=== PATIENT | female | born 1970 | race Caucasian/White ===

== ENCOUNTER 2017-12-01 18:29 | Emergency (ER) | payer BC ==
[~2017-12-01] VITALS: Ht 160 cm; Wt 74.8 kg
[~2017-12-01 18:29] MED LIST: FLEXERIL PO; MEDROLDOSEPACK PO; NORCO 5-325 TA1 EACH PO; TOPAMAX50 MG PO
[2017-12-01] MEDS ORDERED: TOPAMAX 25 MG T25 M1 PO (18:40)
[2017-12-01 19:29] LABS: URINE BILIRUBIN NEGATIVE (Negative); URINE BLOOD 3+ (Negative); URINE CLARITY SL CLOUDY; URINE COLOR RED; URINE GLUCOSE-RANDOM NEGATIVE (Negative); URINE KETONES NEGATIVE (Negative); URINE LEUKOCYTES-REFLEX 1+ (Negative); URINE NITRITE-REFLEX NEGATIVE (Negative); URINE PROTEIN 1+ (Negative); URINE SPECIFIC GRAVITY <= 1.005 (1.005-1.030); URINE UROBILINOGEN 0.2 E.U./dl (0.2-1.0)
[2017-12-01] MEDS ORDERED: BACTRIM DS TAB1 EACH PO (19:41)
[2017-12-01 19:44] LABS: SQUAMOUS 0-3 Few /LPF (0-3); WBC CLUMPS Few (None Seen)
[2017-12-01 19:45] LABS: BACTERIA-REFLEX 1-9 Few /HPF (None Seen); CASTS None Seen /LPF (None Seen); CRYSTALS None Seen /LPF (None Seen); MUCUS 0-3 Light strn/LPF (None Seen); URINE RBC >20 Many /HPF (0-2); URINE WBC-REFLEX 6-15 Few /HPF (0-5)
[2017-12-01 20:06] VITALS: BP 105/66
== END 2017-12-01 20:08 | disposition home or self-care (01) ==
LOC: M.ERS 18:29
PROVIDERS: Nurse Practitioner Psychiatric/Mental Health
DX: N93.8 Other specified abnormal uterine and vaginal bleeding (principal); R82.90 Unspecified abnormal findings in urine; G43.909 Migraine, unspecified, not intractable, without status migrainosus; Z90.49 Acquired absence of other specified parts of digestive tract; Z90.710 Acquired absence of both cervix and uterus; Z90.89 Acquired absence of other organs

== ENCOUNTER 2020-11-16 16:16 | Emergency (ER) | payer BC ==
[~2020-11-16] VITALS: Ht 160 cm; Wt 77.1 kg
[~2020-11-16 16:16] MED LIST changes: +BACTRIM DS TAB1 EACH PO; +TOPAMAX 25 MG T25 M1 PO
[2020-11-16] MEDS ORDERED: PROZAC20 M1 PO (16:27)
[2020-11-16 16:53] LABS: MPV 8.4 fl. (7.2-11.1); PLATELET COUNT* 279 thou/uL (150-400)
[2020-11-16 16:55] LABS: ABSOLUTE BASOPHILS 0.1 thou/uL (0.0-0.2); ABSOLUTE EOSINOPHILS 0.2 thou/uL (0.0-0.7); ABSOLUTE LYMPHOCYTES 1.9 thou/uL (0.8-5.3); ABSOLUTE MONOCYTES 0.7 thou/uL (0.0-1.2); ABSOLUTE NEUTROPHILS 3.5 thou/uL (1.6-8.1); BASOPHILS 1.3 %; EOSINOPHILS 3.3 %; HEMATOCRIT 41.5 % (37.0-47.0); HEMOGLOBIN 13.7 gm/dL (12.0-15.0); MCV 88.1 fL (80.0-100.0); MONOCYTES 10.6 %; NUCLEATED RBCS 0 /100WBC; POLYS 54.8 %; RBC 4.71 mil/uL (4.20-5.00); RDW-CV 13.9 % (10.5-14.5); WBC 6.5 thou/uL (4.0-11.0)
[2020-11-16 17:09] LABS: POTASSIUM 4.2 mmol/L (3.5-5.1)
[2020-11-16 17:18] LABS: URINE BILIRUBIN NEGATIVE (Negative); URINE BLOOD NEGATIVE (Negative); URINE CLARITY CLEAR; URINE COLOR YELLOW; URINE GLUCOSE-RANDOM NEGATIVE (Negative); URINE KETONES NEGATIVE (Negative); URINE LEUKOCYTES-REFLEX NEGATIVE (Negative); URINE NITRITE-REFLEX NEGATIVE (Negative); URINE PROTEIN NEGATIVE (Negative); URINE UROBILINOGEN 0.2 E.U./dl (0.2-1.0)
[2020-11-16 17:21] LABS: TOTAL BILIRUBIN 0.4 mg/dL (<0.1-1.0); TOTAL PROTEIN 7.4 g/dL (6.4-8.2)
[2020-11-16] MEDS ORDERED: MELOXICAM15 MG PO (17:46)
[2020-11-16] MEDS ORDERED: FLEXERIL PO (17:46)
[2020-11-16 18:00] VITALS: BP 122/68
== END 2020-11-16 18:01 | disposition home or self-care (01) ==
LOC: M.ERS 16:16
PROVIDERS: Physician Assistant
DX: M62.830 Muscle spasm of back (principal); G43.909 Migraine, unspecified, not intractable, without status migrainosus; F32.9 Major depressive disorder, single episode, unspecified; Z87.442 Personal history of urinary calculi; Z90.711 Acquired absence of uterus with remaining cervical stump; Z90.49 Acquired absence of other specified parts of digestive tract; Z79.899 Other long term (current) drug therapy